=== PATIENT | female | born 1995 | race Caucasian/White ===

== ENCOUNTER 2019-04-05 14:12 | Emergency (ER) | payer BC ==
--- NOTE | 2019-04-05 17:12 | ED ---
Lower Extremity - HPI Summary HPI Summary: 24-year-old female presents with left posterior thigh pain today. States that she was water skiing and she hyperextended her leg. She felt a pull in her hamstring. States she's been having difficulty ambulate. she took ibuprofen and now range of motion is better. No previous injury to area. Denies any hip or knee pain. pain is only on posterior aspect of leg. The incident happened couple hours ago. No numbness or tingling. - History of Current Complaint Chief Complaint: EDExtremityLower Stated Complaint: LEFT LEG INJURY FROM WATER SKIING Time Seen by Provider: 04/05/19 17:07 Pain Intensity: 8 - Allergies/Home Medications Allergies/Adverse Reactions: Allergies Allergy/AdvReac Type Severity Reaction Status Date / Time No Known Allergies Allergy Verified 04/05/19 14:35 PMH/Surg Hx/FS Hx/Imm Hx Endocrine/Hematology History: Denies: Hx Anticoagulant Therapy Respiratory History: Denies: Hx Asthma - Immunization History Immunizations Up to Date: Yes Infectious Disease History: No Infectious Disease History: Denies: Traveled Outside the [place] in Last 30 Days - Family History Known Family History: Positive: Non-Contributory - Social History Alcohol Use: Weekly Substance Use Type: Reports: None Smoking Status (MU): Never Smoked Tobacco Review of Systems Negative: Fever Negative: Chest Pain Negative: Shortness Of Breath Positive: Myalgia - left thigh pain All Other Systems Reviewed And Are Negative: Yes Physical Exam Triage Information Reviewed: Yes Vital Signs On Initial Exam: Initial Vitals Temp Pulse Resp BP Pulse Ox 99.1 F 95 18 117/75 99 04/05/19 14:33 04/05/19 14:33 04/05/19 14:33 04/05/19 14:33 04/05/19 14:33 Vital Signs Reviewed: Yes Appearance: Positive: Well-Appearing Skin: Positive: Warm, Dry Head/Face: Positive: Normal Head/Face Inspection Eyes: Positive: Normal, Conjunctiva Clear ENT: Positive: Pharynx normal Respiratory/Lung Sounds: Positive: Clear to Auscultation, Breath Sounds Present Cardiovascular: Positive: Normal, RRR Musculoskeletal: Positive: Strength/ROM Intact - left leg, Other - tenderness posterior leg left, good pulses Neurological: Positive: Normal Psychiatric: Positive: Normal Diagnostics - Vital Signs Vital Signs Temp Pulse Resp BP Pulse Ox 04/05/19 16:09 99.0 F 90 18 128/84 99 04/05/19 14:33 99.1 F 95 18 117/75 99 - Laboratory Lab Statement: Any lab studies that have been ordered have been reviewed, and results considered in the medical decision making process. Lower Extremity Course/Dx - Course Course Of Treatment: 24-year-old female presents with left posterior thigh pain today. States that she was water skiing and she hyperextended her leg. She felt a pull in her hamstring. States she's been having difficulty ambulate. she took ibuprofen and now range of motion is better. No previous injury to area. Denies any hip or knee pain. pain is only on posterior aspect of leg. The incident happened couple hours ago. No numbness or tingling. On exam has tenderness over left posterior leg. Has good range of motion of hip and knee. Discussed likely hamstring sprain. Told to ice and elevate. gave crutches. Told if no improvement follow up with orthopedic. Patient understands agrees with plan. - Diagnoses Differential Diagnosis/HQI/PQRI: Positive: Fracture (Closed), Sprain, Strain Provider Diagnoses: Left leg pain Discharge - Sign-Out/Discharge Documenting (check all that apply): Patient Departure Patient Received Moderate/Deep Sedation with Procedure: No - Discharge Plan Condition: Good Disposition: HOME Patient Education Materials: Leg Sprain (ED) Referrals: No Primary Care Phys,NOPCP [Primary Care Provider] - Eduardo Guy MD [Medical Doctor] - Additional Instructions: Ice, elevate Ibuprofen or tyenlol every 6 hours for pain Follow up with ortho if no improvement Return to ED if develop or any new or worsening symptoms - Billing Disposition and Condition Condition: GOOD Disposition: Home
[2019-04-05 18:47] VITALS: BP 133/65
== END 2019-04-05 18:46 | disposition home or self-care (01) ==
LOC: ED 14:12
DX: M79.605 Pain in left leg (principal); X50.9XXA Other and unspecified overexertion or strenuous movements or postures, initial encounter; Y93.17 Activity, water skiing and wake boarding; Y92.9 Unspecified place or not applicable
CPT/HCPCS: 99281